=== PATIENT | female | born 1995 | race African-American/Black ===

== ENCOUNTER 2016-10-12 20:39 | Emergency (ER) | payer MEDICAID ==
[~2016-10-12] VITALS: Ht 172.7 cm; Wt 54.4 kg
--- NOTE | 2016-10-12 20:50 | NUR ---
TO BED 7 A 21 YO FEMALE BIBSELF C/O RIGHT ARM REDNESS WITH ITCHINESS SINCE YESTERDAY. NAD NOTED. VSS. NONDIAPHORETIC. INITIATED COMFORT MEASURES. AWAITING FOR ER MD PALMA.
--- NOTE | 2016-10-12 21:18 | NUR ---
DR LAKHANI AT BEDSIDE TO EVAL.
--- NOTE | 2016-10-12 21:33 | NUR ---
Patient discharged to home in stable condition. Written and verbal after care instructions given. Patient verbalizes understanding of instruction. Patient is ambulatory with a steady gait, no further complaints.
== END 2016-10-12 21:34 | disposition home or self-care (01) ==
LOC: ER 20:45
DX: L03.113 Cellulitis of right upper limb (principal)
CPT/HCPCS: 99283; A4606